=== PATIENT | female | born 1945 | race Caucasian/White ===

== ENCOUNTER 2025-09-27 15:00 | Emergency (ER) | payer MEDICARE, SELFPAY ==
[2025-09-27 15:04] VITALS: BP 159/95
--- NOTE | 2025-09-27 15:30 | ED.GENMED ---
History of Present Illness
General
Chief Complaint: Extremity Pain (non-traumatic)
Source: patient
Exam Limitations: none
Time Seen by Provider: 09/27/25 15:26
History of Present Illness
History of Present Illness:
80yoF with history of coronary artery disease s/p PCI x2, hypertension, hyperlipidemia, and depression presenting with her daughter for evaluation of left shoulder pain. Patient was getting into bed yesterday evening around 11 PM when she noticed a
sharp pain in her left shoulder. The pain gradually became severe and radiated into her left chest. The entire episode lasted about 10 minutes before resolving. She has not had any recurrent chest pains left shoulder pains today family wanted her
to be evaluated. She denies any associated diaphoresis, nausea, vomiting, shortness of breath, paresthesias, leg swelling, calf pain. Patient recently moved to the area and is scheduled to have an initial cardiology appointment next month.
Phy Exam
General Physical Exam
General Presentation: well appearing and no apparent distress
General Skin: warm and dry
General Habitus: normal
General Mental: alert
ENT Exam
ENT Exam: normocephalic
Cardiovascular Exam
Cardiovascular Exam: regular rate/rhythm, no edema, no murmur and normal peripheral pulses (2+ radial and DP pulses bilaterally)
Pulmonary Exam
Pulmonary Exam: lungs clear, no respiratory distress, no rales, no crackles, no rhonchi and no wheezing
Neurological Exam
Neurological Exam: alert
Catherine Coma Scale
Eye Opening: Spontaneous
Verbal Response: Oriented
Motor Response: Obeys Commands
GCS Total Score: 15
Skin Exam
Skin Exam: normal color and warm/dry
Psychiatric Exam
Psychiatric Exam: normal mood/affect
Course
Orders/Labs/Results
Orders:
Orders
09/27/25 15:11
Electrocardiogram (*1) Urgent
Reason for Study: Chest Pain
EKG- Treatment ONCE
09/27/25 15:46
CMP [Comprehensive Metabolic Panel] Urgent
Complete Blood Count/With Diff Urgent
Troponin I Urgent
Abnormal Lab Results
09/27/25
15:46
RBC 4.10 L 10^6/uL
(4.20-5.40)
MCH 31.7 H pg
(27.0-31.0)
Absolute Monos (auto) 0.7 H 10^3/uL
(0.1-0.6)
Monocytes % 12.2 H %
(1.7-9.3)
09/27/25 15:46
09/27/25 15:46
Vital Signs
Initial and Last Documented VS:
Initial Vital Signs
Temp Pulse Resp BP Pulse Ox
97.9 F 62 18 159/95 95
09/27/25 15:04 09/27/25 15:04 09/27/25 15:04 09/27/25 15:04 09/27/25 15:04
Last Documented Vital Signs
Temp Pulse Resp BP Pulse Ox
97.9 F 59 18 181/109 96
09/27/25 15:04 09/27/25 17:41 09/27/25 17:41 09/27/25 17:41 09/27/25 17:41
MDM/Problems Addressed
Differential Diagnosis Includes:
80yoF presenting after an episode of L shoulder pain that radiated into L chest. Last 10 minutes and occurred at 11pm last night. Currently asymptomatic. She is well appearing in no distress and exam is reassuring with equal pulses in all
extremities. Differential diagnosis includes but is not limited to: musculoskeletal pain, less likely ACS, doubt PE
Initial ED plan: Triage EKG shows NSR without ischemic changes. Will check cardiac labs.
*Pulse Oximetry
SaO2: 95
Oxygen Mode of Delivery: Room air
Patient hypoxic: no
*EKG
Interpreted by ED Provider?: Yes
EKG Intrepretation Date: 09/27/25
Heart Rate: 62
Rate: normal
Rhythm: sinus
Bluford: normal axis
Interval: normal interval
QRS Pattern: normal QRS
Ischemia: no ischemia
*Critical Care Note
Total Time (30-74mins, 75-104mins- exclusive of procedures): Not Applicable
Update Note
Update Note:
Labs unremarkable and troponin undetectable. Patient remains asymptomatic on reassessment. She is stable for discharge. She has an appointment scheduled with cardiology next month but was advised to call the office tomorrow to see if this is able
to be moved up. ED return precautions reviewed. Patient and daughter in agreement with plan and she was discharged in stable condition.
ED Attending Note
-
Portions of this chart may have been created with voice recognition software.� Occasional wrong word or��sound alike� substitutions may have occurred due to the inherent limitations of voice recognition software.
Discharge Plan
Departure
Patient Disposition: Home (Routine Discharge)
Date of Disposition: 09/27/25
Time of Disposition: 17:17
Patient with high blood pressure during this ER visit?: Yes
Discharge Problem:
Left shoulder pain
Instructions: Chest pain (DC)
Referrals:
Edi Parker DO [Active, Cardiology]
Odalys Sosa PA-C [Family Provider, Family Practice]
Activity Restrictions/Additional Instructions:
Please call the cardiology office tomorrow to see if they are able to move up your appointment.
Return to the ER immediately with any new or worsening symptoms.
Interventions
Interventions:
*Risk Screen - Suicide Last Done: 09/27/25 15:04
*General Assessment Last Done: 09/27/25 15:43
*Neglect/Abuse Screening Last Done: 09/27/25 15:04
*ED- Fall Risk Assessment Last Done: 09/27/25 15:43
*ED COVID-19 Vaccine History Last Done: 09/27/25 15:43
*ED Influenza Vaccine History Last Done: 09/27/25 15:43
*Nursing Disposition Last Done: 09/27/25 17:42
ED-Skin Assessment Last Done: 09/27/25 15:43
ED-Peripheral Vascular Assessment Last Done: 09/27/25 15:55
ED-Musculoskeletal Assessment Last Done: 09/27/25 15:43
Discharge Date and Time
Discharge Date/Time: 09/27/25 17:43
Print Language: SERBIAN
[2025-09-27 16:04] LABS: Hematocrit 38.3 % (37.0-47.0); Hemoglobin 13.0 g/dL (12.0-16.0); Mean Corp Hgb Conc. 33.9 g/dL (33.0-37.0); Mean Corpuscular Volume 93.4 fL (81.0-99.0); Nucleated Red Blood Cells % 0 %; Platelet Count 221 10^3/uL (130-400); Red Cell Dist. Width 13.0 % (11.5-14.5)
[2025-09-27 16:50] LABS: Troponin I < 0.012 ng/ml
[2025-09-27 17:07] LABS: ALT (SGPT) 13 U/L (0-35); AST (SGOT) 25 U/L (14-36); Albumin 4.2 g/dl (3.5-5.0); Alkaline Phosphatase 63 U/L (38-126); Blood Urea Nitrogen 17 mg/dl (7-17); Calcium 9.8 mg/dl (8.4-10.2); Carbon Dioxide 27 mmol/L (22-30); Chloride 103 mmol/L (98-107); Glucose 97 mg/dl (70-99); Potassium 4.0 mmol/L (3.5-5.1); Sodium 135 mmol/L (135-145); Total Protein 6.8 g/dl (6.3-8.2); eGFR > 60.00
[2025-09-27 17:41] VITALS: BP 181/109
== END 2025-09-27 17:43 | disposition home or self-care (01) ==
LOC: EMR 15:00
PROVIDERS: Emergency Medicine; EMERGENCY PHYSICIAN Emergency Medicine; FAMILY PHYSICIAN Physician Assistant Medical
DX: M25.512 Pain in left shoulder (principal); E78.5 Hyperlipidemia, unspecified; I10 Essential (primary) hypertension; I25.10 Atherosclerotic heart disease of native coronary artery without angina pectoris; Z95.5 Presence of coronary angioplasty implant and graft
CPT/HCPCS: 99284; 80053; 84484; 85025; 93005

== ENCOUNTER → 2025-10-20 08:00 | Outpatient (REF) | payer MEDICARE, SELFPAY | LOC: HWRCS 08:00 | PROVIDERS: ATTENDING PHYSICIAN Internal Medicine Cardiovascular Disease; FAMILY PHYSICIAN Physician Assistant Medical | DX: R07.89 Other chest pain (principal); M25.512 Pain in left shoulder; I25.10 Atherosclerotic heart disease of native coronary artery without angina pectoris; E78.00 Pure hypercholesterolemia, unspecified; R06.02 Shortness of breath | CPT/HCPCS: 78452; 93017; A9500; J2785 ==

== ENCOUNTER → 2025-10-26 11:05 | Outpatient (REF) | payer MEDICARE, SELFPAY | LOC: HWRCS 11:05 | PROVIDERS: ATTENDING PHYSICIAN Internal Medicine Cardiovascular Disease; FAMILY PHYSICIAN Physician Assistant Medical | DX: R07.89 Other chest pain (principal); E78.00 Pure hypercholesterolemia, unspecified; I25.10 Atherosclerotic heart disease of native coronary artery without angina pectoris; M25.512 Pain in left shoulder; R06.02 Shortness of breath | CPT/HCPCS: 93306 ==